=== PATIENT | male | born 1955 ===

== ENCOUNTER 2016-09-29 02:53 | Emergency (ER) | payer MEDICAID ==
[2016-09-29 02:59] VITALS: BP 136/74; PULSE 86; RESP 17; TEMP 97.8; O2SAT 99
--- NOTE | 2016-09-29 04:57 | ED PDOC ---
HPI: Psych/Substance Abuse Time Seen by Provider: 09/29/16 03:04 Chief Complaint (Nursing): Psychiatric Evaluation History/Exam Limitations: no limitations Onset/Duration Of Symptoms: Days (2) Current Symptoms Are (Timing): Gone Now Suicide/Self Injury Attempted (Context): None Modifying Factor(s): None Severity: None Associated Symptoms: Depression Involuntary Hold By: None Past Medical History Reviewed: Historical Data, Nursing Documentation, Vital Signs Vital Signs: Last Vital Signs Temp 97.8 F 09/29/16 02:56 Pulse 86 09/29/16 02:56 Resp 17 09/29/16 02:56 BP 136/74 09/29/16 02:56 Pulse Ox 99 09/29/16 02:56 - Medical History PMH: Depression - Surgical History Surgical History: No Surg Hx - Family History Family History: States: No Known Family Hx - Allergies Allergies/Adverse Reactions: Allergies Allergy/AdvReac Type Severity Reaction Status Date / Time No Known Allergies Allergy Verified 09/29/16 02:58 Review of Systems ROS Statement: Except As Marked, All Systems Reviewed And Found Negative Physical Exam - Reviewed Nursing Documentation Reviewed: Yes Vital Signs Reviewed: Yes - Physical Exam Appears: Positive for: Well, Non-toxic, No Acute Distress Head Exam: Positive for: ATRAUMATIC, NORMAL INSPECTION Skin: Positive for: Warm, Dry Eye Exam: Positive for: EOMI Cardiovascular/Chest: Positive for: Regular Rate, Rhythm. Negative for: Tachycardia Respiratory: Positive for: Normal Breath Sounds. Negative for: Rales, Rhonchi, Wheezing Gastrointestinal/Abdominal: Positive for: Soft. Negative for: Tenderness Extremity: Positive for: Normal ROM Neurologic/Psych: Positive for: Alert, Oriented - ECG O2 Sat by Pulse Oximetry: 99 Medical Decision Making Medical Decision Making: Impression Depression Crisis eval reassess Pt is cleared for discharge by Dr Myers. Disposition - Clinical Impression Clinical Impression: Depression - Patient ED Disposition Is Patient to be Admitted: No Doctor Will See Patient In The: Office Counseled Patient/Family Regarding: Studies Performed, Diagnosis, Need For Followup - Disposition Referrals: [facility] [Outside] Disposition: Routine/Home Disposition Time: 04:56 Condition: GOOD Additional Instructions: Follow up with your PCP in 2-3 days. Instructions: Depression (ED)
== END 2016-09-29 05:20 | disposition home or self-care (01) ==
LOC: H.ER 02:53
DX: F32.9 Major depressive disorder, single episode, unspecified (principal)